=== PATIENT | male | born 1950 | race Caucasian/White ===

== ENCOUNTER 2018-02-17 09:42 | Day surgery (SDC) | payer MEDICARE ==
[~2018-02-17 09:42] MED LIST: Buffered Lidocaine 0.9% SYRIN* 5 ML/SYR SYRINGE INTRADERM ONE
[2018-02-17] MEDS ORDERED: ceFAZolin 2 GM PREMIX (*) 2 GM/50 ML BAG IVPB ONE (10:00)
[2018-02-17] MEDS ORDERED: Lidocaine 2% PF * 5 ML VIAL ONE (11:15)
[2018-02-17] MEDS ORDERED: Propofol* 10 MG/ML 20 ML BTL IV PUSH ONE ×2 (11:15→13:40)
[2018-02-17] MEDS ORDERED: Bupivacaine 0.5%* 50 ML VIAL ONE (12:40)
[2018-02-17] MEDS ORDERED: ROPIVACAINE 5 MG/ML 30 ML BTL (0.5%) ONE (13:17)
[2018-02-17] MEDS ORDERED: Lidocaine 2% (CARDIAC)* 20 MG/ML 5 ML SYRINGE (100 MG) ONE (13:17)
[2018-02-17] MEDS ORDERED: Midazolam* 1 MG/ML 5 ML VIAL (5 MG) ONE (13:24)
[2018-02-17] MEDS ORDERED: fentaNYL* 50 MCG/ML 2 ML VIAL (100 MCG VIAL) IV PRN (15:44)
[2018-02-17] MEDS ORDERED: Acetaminophen TAB* 325 MG PO PRN (15:44)
[2018-02-17] MEDS ORDERED: Naloxone* 0.4 MG/ML 1 ML VIAL IV PRN (15:44)
[2018-02-17 16:28] VITALS: BP 176/89
--- NOTE | 2018-02-22 00:32 | OP ---
DATE OF OPERATION: 02/17/18 - [facility] DATE OF : 46 SURGEON: Rakesh Pop MD INSIDE SALES ADVISOR: ABBY Stewart ANESTHESIA: General. PRE-OP DIAGNOSES: 1. Severe left carpal tunnel syndrome. 2. Severe left cubital tunnel syndrome. 3. 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 POST-OP DIAGNOSES: 1. Severe left carpal tunnel syndrome. 2. Severe left cubital tunnel syndrome. 3. 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 OPERATIVE PROCEDURE: 1. Left carpal tunnel release. 2. Left ulnar nerve decompression at the wrist. 3. Revision left ulnar nerve decompression at the elbow of prior transposition with revision to transmuscular transposition. INDICATIONS: Rakesh is 67. He has had progressive atrophy of the intrinsic muscles over the last 10 years on the left. There is no symptoms on the right or other neurological symptoms to suggest a motor neuron disease. He has constant numbness and tingling. He did have a prior ulnar nerve decompression with transposition 10 years ago. Shortly after his initial transposition, he felt a pop ever since then he has had significant numbness and tingling in the fingers. This has gone onto significant atrophy of the intrinsic muscles. This is particularly worse in the ulnar innervated intrinsic; however, he had some atrophy of the thenar muscles as well. He has an intrinsic minus hand. He went and saw Dr. 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 On my review, he also had some slowing of the conduction velocity across the carpal tunnel and had findings consistent with carpal tunnel syndrome as well. We had talked about the proposed treatment. He almost certainly needs tendon transfers to correct the intrinsic minus hand. Additionally I want to prevent any further neurological injury or deterioration, so I told them that we have to revise the compressions and the transposition. He understands this, he wants to proceed. He understands that the atrophy will not return. He will not have improvement of the atrophy or of the function of the fingers. Hopefully we will get better sensation and halt any further neurological deterioration. ESTIMATED BLOOD LOSS: 5 mL. COMPLICATIONS: None. FINDINGS: See above and below. DESCRIPTION OF PROCEDURE: Rakesh was seen in the preoperative holding area. The correct side, site and procedure were identified. We came back to the operating room. The arm was prepped and draped in the usual fashion. A time- out was performed. I began by making a longitudinal incision in the proximal palm in the standard location for a carpal tunnel release. This was brought back in Brigette type fashion across the ulnar aspect of the wrist. Dissection was carried down and the transverse carpal ligament was exposed. The transverse carpal ligament was released from distal to proximal until it had been completely released together with the distal antebrachial fascia. Once the carpal tunnel release was completed in its entirety and there was absolutely no compression of the median nerve, I turned my attention to the ulnar nerve where I entered Guyon's canal. I carried out my release distally and proximally to decompress all of the sensory portions of the nerve. I then retracted the nerve gently out of the way and released the proximal hypothenar attachment to the hook of the hamate both the superficial and deep fibers to fully decompress the motor branch. Once I had fully decompressed the ulnar nerve both the motor and sensory components and there was no compression there I irrigated out the wound and the skin was closed with 4-0 nylon suture. I then turned my attention to the elbow. The arm was abducted and externally rotated. I extended his prior incision which was actually quite small distally and proximally in line with the ulnar nerve. Dissection was carried down very carefully. I took quite some time to try to identify the medial antebrachial cutaneous nerve. Ultimately, I was able to encounter 1 branch which appeared to be in continuity, although there was an area where it appeared as though it may have been injured. Ultimately, I decided the preoperative symptoms were not significant enough in the distribution of the medial antebrachial cutaneous nerve that I thought we should explore it further. I at this point took quite a bit of time to perform neurolysis of the ulnar nerve. It was surrounded by scar tissue. I placed a vessel loop around the nerve and ultimately was able to perform a circumferential neurolysis taking one of the traversing veins with it. I was able to dissect out the motor branches to the FCU. There is still some medial intramuscular symptom present, so I went ahead and excised that in its entirety. I excised the leading edge of the FCU fascia. I then raised C- type flaps off of the flexor pronator fascia. I excised the septi in the flexor pronator mass. Once I had a nice soft muscular bed, I went ahead and transposed the nerve and sewed my fascial flaps end to end to keep the nerve in the transposed position. Hemostasis have been obtained with the Bovie cautery. We flexed and extended the elbow multiple times. There was no subluxation of the nerve. There was no kinking or catching of the nerve. We irrigated out the wound. The subcutaneous tissue was reapproximated with 3-0 Vicryl. The skin was closed with 4-0 nylon. Marcaine was infiltrated into the operative area. The wounds were dressed with Xeroform, 4x4s, sterile Webril and then a long arm splint with a lateral buttress was applied. Tourniquet was deflated. We reduced tourniquet to 250 mmHg throughout the case. The hand pinked up immediately. He was then woken up and taken to the recovery room in stable condition. Please note that due to this being revision on the nerve transposition this was substantially more complex than a typical ulnar nerve decompression would be. [id number] #: [id number] YOVANNY
== END 2018-02-17 16:09 | disposition home or self-care (01) ==
LOC: OREAST 09:42
PROVIDERS: ATTEND Orthopaedic Surgery Hand Surgery
DX: G56.02 Carpal tunnel syndrome, left upper limb (principal); G56.22 Lesion of ulnar nerve, left upper limb; M21.512 Acquired clawhand, left hand; I10 Essential (primary) hypertension; M19.90 Unspecified osteoarthritis, unspecified site; Z72.0 Tobacco use
CPT/HCPCS: J0690; J2250; J2704; J2795